=== PATIENT | female | born 1950 | race Caucasian/White ===

== ENCOUNTER → 2017-01-08 | Outpatient (CLI) | payer MEDICARE, OTHER ==
[~2017-01-08] MED LIST: ALLEGRA-D 12 HR1 TAB PO; AMBIEN DPS10 MG PO; AUGMENTIN875 MG PO; BACTRIM DS TAB1 EACH PO; BUDESONIDE0.5 MG/2 M NS; CULTURELLE1 CAP PO; DESYREL DPS150 MG PO; EPIPEN 2-P0.3 MG/0.3 IM; FIBERCON DPS625 MG PO; FLAGYL-DPS500 MG PO; KLOR-CON M2020 ME1 PO; LEVOTHYROXINE150 MCG PO; LOPERAMIDE2 MG PO; MONTELUKAST SOD10 MG PO; TEKTURNA150 MG PO; TENORMIN100 MG PO; TYLENOL EXTRA500 M1 PO; XANAX DPS0.25 MG PO; XARELTO20 MG PO; ZANTAC DPS150 MG PO
== END | disposition home or self-care (01) ==
LOC: RAD.S 08:00
DX: R91.8 Other nonspecific abnormal finding of lung field (principal)

== ENCOUNTER → 2017-04-07 | Outpatient (CLI) | payer MEDICARE, OTHER | END | disposition home or self-care (01) | LOC: RAD.S 03-26 09:09 → PTH.S 04-06 09:30 | DX: R91.8 Other nonspecific abnormal finding of lung field (principal) ==